=== PATIENT | female | born 1995 | race African-American/Black ===

== ENCOUNTER 2023-04-05 16:56 | Emergency (ER) | payer SELFPAY ==
[~2023-04-05] VITALS: Ht 162.6 cm; Wt 54.0 kg
[2023-04-05 17:41] VITALS: BP 128/92
[2023-04-05 17:46] VITALS: BP 137/85
[2023-04-05 18:00] VITALS: BP 136/98
[2023-04-05 18:15] VITALS: BP 129/96
[2023-04-05 18:22] LABS: URINE COLOR YELLOW; URINE GLUCOSE - DIPSTICK NEGATIVE (NEGATIVE); URINE KETONE Trace mg/dL (NEGATIVE); URINE SPECIFIC GRAVITY 1.025
[2023-04-05 18:23] LABS: URINE BLOOD DIPSTICK TRACE (NEGATIVE); URINE LEUK ESTERASE SMALL (NEGATIVE); URINE NITRITE - DIPSTICK NEGATIVE (Negative); URINE PROTEIN - DIPSTICK 30 mg/dL (NEG-TRACE)
[2023-04-05 18:26] LABS: URINE SQUAMOUS EPITHELIAL CELL MANY EPI/hpf (0-FEW)
[2023-04-05] MEDS ORDERED: KEFLEX500 MG PO (19:10)
[2023-04-05] MEDS ORDERED: DIFLUCAN150 MG PO (19:10)
[2023-04-05 19:52] VITALS: BP 129/96
== END 2023-04-05 19:50 | disposition home or self-care (01) | DRG 690 ==
LOC: ED 16:56
PROVIDERS: Nurse Practitioner
DX: N39.0 Urinary tract infection, site not specified (principal); N89.8 Other specified noninflammatory disorders of vagina

== ENCOUNTER 2023-10-02 16:40 | Emergency (ER) | payer SELFPAY ==
[~2023-10-02] VITALS: Ht 162.6 cm; Wt 59.8 kg
[~2023-10-02 16:40] MED LIST: DIFLUCAN150 MG PO; KEFLEX500 MG PO
[2023-10-02 16:58] VITALS: BP 110/73
[2023-10-02 17:00] VITALS: BP 111/79
[2023-10-02 17:16] LABS: URINE BILIRUBIN - DIPSTICK Negative (NEGATIVE); URINE BLOOD DIPSTICK Negative (NEGATIVE); URINE GLUCOSE - DIPSTICK Negative (NEGATIVE); URINE KETONE Negative (NEGATIVE); URINE LEUK ESTERASE Trace (NEGATIVE); URINE NITRITE - DIPSTICK Negative (Negative); URINE PH 6.5 (4.5-8.0); URINE PROTEIN - DIPSTICK Trace mg/dL (NEG-TRACE); URINE SPECIFIC GRAVITY >=1.030
[2023-10-02 17:17] LABS: URINE COLOR Yellow
[2023-10-02 17:30] VITALS: BP 119/78
[2023-10-02 18:00] VITALS: BP 109/76
[2023-10-02 18:30] VITALS: BP 122/83
[2023-10-02 18:42] VITALS: BP 122/83
== END 2023-10-02 18:45 | disposition home or self-care (01) | DRG 759 ==
LOC: ED 16:40
PROVIDERS: Nurse Practitioner
DX: A59.01 Trichomonal vulvovaginitis (principal)